=== PATIENT | male | born 1960 | race Caucasian/White ===

== ENCOUNTER 2022-01-16 01:02 | Day surgery (SDC) | payer OTHER, SELFPAY ==
[2022-01-07 14:16] VITALS: BMI 31.6
[2022-01-16 12:39] VITALS: BP 116/65; PULSE 57; RESP 16; TEMP 36.6; O2SAT 99; BMI 28.2
[2022-01-16] MEDS: LACTATED RINGERS 1,000 ML 150 ML IV CONT (12:53)
--- NOTE | 2022-01-16 13:06 | WPDANESEPPF ---
Anes - Initial Pre Proc Eval Procedure: Operation Date: 01/16/22 13:45 Proposed Procedures p Esophagogastroduodenoscopy - Dipesh Randhawa MD Date/Time: 01/16/22 13:06 Surgeon: Dipesh Randhawa MD Pre Op Diagnosis: dysphagia Patient Data Age: 61 Gender: M Height: 1.93 m Weight: 105.1 kg Last Vital Signs Temp 36.6 C 01/16/22 12:39 Pulse 57 L 01/16/22 12:39 Resp 16 01/16/22 12:39 BP 116/65 01/16/22 12:39 Pulse Ox 99 01/16/22 12:39 Allergies Allergy/AdvReac Type Severity Reaction Status Date / Time No Known Allergies Allergy Verified 01/16/22 12:38 Home Medications Medication Instructions Recorded Confirmed Type levothyroxine [Synthroid] 88 mcg PO DAILY 01/07/22 01/07/22 History Patient hx anesthesia problems: none Family hx anesthesia problems: none Results Review: All pre-operative results and documents have been reviewed as part of the pre-operative evaluation. [facility] Past Medical History Medical History (Updated 01/16/22 @ 13:08 by Boogie Baca MD) Hemorrhoids Hypothyroidism Overweight Social History Social History Smoking status: Never smoker Alcohol intake: current Drinks per week: 1 Substance use type: does not use Living arrangements: with family Spiritual care concerns: No Anes - Eval Final PreProcedure Day of Procedure 01/16/22 13:06 Patient weight: overweight Heart: regular rate and rhythm Lungs: clear to auscultation Airway: Mallampati scale class II Neurological: alert and oriented Last oral intake: >/= 8 hours ASA classification: II Emergent: no Anesthetic plan: proceed Anesthesia type and monitoring: general GIVS and standard monitoring Results Review: All pre-operative results and documents have been reviewed as part of the pre-operative evaluation. Informed Consent: The patient's anesthetic plan and its attendant risks and benefits were discussed with the patient/family/POA. Questions were solicited and answers provided to the satisfaction of the patient/family/POA.
--- NOTE | 2022-01-16 13:32 | PM.HPGS ---
History of Present Illness History of Present Illness Consent: Risks, benefits, and alternatives have been discussed and questions answered. Patient agrees to proceed with procedure. Chief complaint: dysphagia Narrative: Hung Ashford is a 61 year old male With dysphagia for the past 6 months. he also has had a great deal of heartburn for the past year. He has been using [id number] medications such as Pepcid for that. He Occasional has a sensation of food is getting stuck when he swallows. Review of Systems Review of Systems: All systems reviewed & are unremarkable except as noted in HPI and below PMFSH Past Medical History Medical History Hemorrhoids Hypothyroidism Overweight Social History Social History Smoking status: Never smoker Alcohol intake: current Drinks per week: 1 Substance use type: does not use Living arrangements: with family Spiritual care concerns: No Meds Home Medications and Allergies Home Medications Medication Instructions Recorded Confirmed Type levothyroxine [Synthroid] 88 mcg PO DAILY 01/07/22 01/07/22 History Allergies Allergy/AdvReac Type Severity Reaction Status Date / Time No Known Allergies Allergy Verified 01/16/22 12:38 Vital Signs Vital Signs - 24 hr 01/16/22 12:39 Temperature 36.6 C Pulse Rate 57 L Respiratory Rate 16 Blood Pressure 116/65 Pulse Oximetry 99 Exam Const: General: alert Orientation/consciousness: patient oriented x3 Resp: Auscultation: clear to auscultation bilaterally Cardio: Rhythm: regular rhythm GI: GI Palp: Yes Soft to palpation and No Tenderness to palpation present (GI) Neuro: General: patient oriented x3 Assessment and Plan Assessment and plan (1) Dysphagia: Code(s): R13.10 - Dysphagia, unspecified Status: Acute Assessment and Plan: EGD with possible biopsy or dilatation or cautery.
[2022-01-16 14:04] VITALS: BP 106/63; PULSE 55; RESP 18; O2SAT 95
[2022-01-16 14:14] VITALS: BP 107/61; PULSE 52; RESP 18; O2SAT 98
[2022-01-16 14:24] VITALS: BP 109/66; PULSE 54; RESP 16; O2SAT 96
== END 2022-01-16 14:44 | disposition home or self-care (01) ==
PROVIDERS: PCP Physician Assistant; Visit Provider Internal Medicine Gastroenterology
PROC: 0DJ08ZZ Inspection of Upper Intestinal Tract, Via Natural or Artificial Opening Endoscopic (ICD-10-PCS; CPT 43235; principal; 2022-01-16 13:45)
DX: K22.2 Esophageal obstruction (principal); K21.00 Gastro-esophageal reflux disease with esophagitis, without bleeding; K44.9 Diaphragmatic hernia without obstruction or gangrene; E03.9 Hypothyroidism, unspecified
CPT/HCPCS: 43249; 43239; 87081; 88305; C1726; J2704; J7120

== ENCOUNTER 2022-03-23 02:45 | Day surgery (SDC) | payer OTHER, SELFPAY ==
[2022-03-12 11:34] VITALS: BMI 28.6
--- NOTE | 2022-03-20 14:01 | PM.HPGS ---
History of Present Illness History of Present Illness Consent: Risks, benefits, and alternatives have been discussed and questions answered. Patient agrees to proceed with procedure. Chief complaint: Esophagitis Narrative: Hung Ashford is a 61 year old male Who was found have severe, grade 4 esophagitis 2 months ago which time an esophageal stricture also was seen and was dilated. He returns now for follow-up evaluation to ensure healing and repeat dilatation if necessary Review of Systems Review of Systems: All systems reviewed & are unremarkable except as noted in HPI and below PMFSH Past Medical History Medical History Hemorrhoids Hypothyroidism Overweight Social History Social History Smoking status: Never smoker Alcohol intake: current Drinks per week: 1 Substance use type: does not use Living arrangements: with family Spiritual care concerns: No Meds Home Medications and Allergies Home Medications Medication Instructions Recorded Confirmed Type levothyroxine 100 mcg tablet 100 mcg PO DAILY 03/12/22 03/23/22 History (Synthroid) Allergies Allergy/AdvReac Type Severity Reaction Status Date / Time No Known Allergies Allergy Verified 03/23/22 11:14 Exam Const: General: alert Orientation/consciousness: patient oriented x3 Resp: Auscultation: clear to auscultation bilaterally Cardio: Rhythm: regular rhythm GI: GI Palp: Yes Soft to palpation and No Tenderness to palpation present (GI) Neuro: General: patient oriented x3 Assessment and Plan Assessment and plan (1) Erosive esophagitis: Code(s): K22.10 - Ulcer of esophagus without bleeding Status: Acute Assessment and Plan: EGD with possible biopsy or dilatation or cautery.
[2022-03-23 11:15] VITALS: BP 121/67; PULSE 55; RESP 18; TEMP 36.8; O2SAT 99
[2022-03-23] MEDS: LACTATED RINGERS 1,000 ML 150 ML IV CONT (11:19)
--- NOTE | 2022-03-23 12:37 | P.PNAN_ITS ---
Anes - Initial Pre Proc Eval Procedure: Operation Date: 03/23/22 12:30 Proposed Procedures p Esophagogastroduodenoscopy - Dipesh Randhawa MD Date/Time: 03/23/22 12:37 Surgeon: Dipesh Randhawa MD Pre Op Diagnosis: Esophagitis Patient Data Age: 61 Gender: M Height: 1.91 m Weight: 105.9 kg Last Vital Signs Temp 98.2 F 03/23/22 11:15 Pulse 55 L 03/23/22 11:15 Resp 18 03/23/22 11:15 BP 121/67 03/23/22 11:15 Pulse Ox 99 03/23/22 11:15 O2 Del Method Room Air 03/23/22 11:15 Allergies Allergy/AdvReac Type Severity Reaction Status Date / Time No Known Allergies Allergy Verified 03/23/22 11:14 Home Medications Medication Instructions Recorded Confirmed Type levothyroxine 100 mcg tablet 100 mcg PO DAILY 03/12/22 03/23/22 History (Synthroid) Patient hx anesthesia problems: none Family hx anesthesia problems: none Results Review: All pre-operative results and documents have been reviewed as part of the pre- operative evaluation. [facility] Past Medical History Medical History Hemorrhoids Hypothyroidism Overweight Social History Social History Smoking status: Never smoker Alcohol intake: current Drinks per week: 1 Substance use type: does not use Living arrangements: with family Spiritual care concerns: No Anes - Eval Final PreProcedure Day of Procedure 03/23/22 12:37 Patient weight: normal Heart: regular rate and rhythm Lungs: clear to auscultation Airway: Mallampati scale class II Neurological: alert and oriented Last oral intake: >/= 8 hours ASA classification: II Emergent: no Anesthetic plan: proceed Anesthesia type and monitoring: general GIVS and standard monitoring Results Review: All pre-operative results and documents have been reviewed as part of the pre- operative evaluation. Informed Consent: The patient's anesthetic plan and its attendant risks and benefits were discussed with the patient/family/POA. Questions were solicited and answers provided to the satisfaction of the patient/family/POA.
[2022-03-23 12:57] VITALS: BP 109/66; PULSE 49; RESP 17; O2SAT 97
[2022-03-23 13:07] VITALS: BP 121/76; PULSE 53; RESP 16; O2SAT 98
[2022-03-23 13:17] VITALS: BP 121/75; PULSE 54; RESP 16; O2SAT 99
== END 2022-03-23 13:28 | disposition home or self-care (01) ==
PROVIDERS: PCP Physician Assistant; Visit Provider Internal Medicine Gastroenterology
PROC: 0DJ08ZZ Inspection of Upper Intestinal Tract, Via Natural or Artificial Opening Endoscopic (ICD-10-PCS; CPT 43235; principal; 2022-03-23 12:30)
DX: K21.00 Gastro-esophageal reflux disease with esophagitis, without bleeding (principal); K22.2 Esophageal obstruction; E03.9 Hypothyroidism, unspecified
CPT/HCPCS: 43239; 88305; J2704; J7120

== ENCOUNTER 2024-06-30 00:13 | Day surgery (SDC) | payer OTHER, SELFPAY ==
[2024-06-14 12:42] VITALS: BMI 28.7
[2024-06-30 06:56] VITALS: BP 132/89; PULSE 53; RESP 20; TEMP 35.7; O2SAT 99; BMI 28.1
[2024-06-30] MEDS: LACTATED RINGERS 1,000 ML 150 ML IV CONT (07:06)
--- NOTE | 2024-06-30 07:24 | P.PNAN_ITS ---
Anes - Initial Pre Proc Eval Procedure: Operation Date: 06/30/24 08:00 Proposed Procedures p Esophagogastroduodenoscopy & Colonoscopy - Gabino Mckinnon MD Date/Time: 06/30/24 07:24 Surgeon: Gabino Mckinnon MD Pre Op Diagnosis: hx. of esophageal ulcer & stricuture,hx. of polyps Patient Data Age: 64 Gender: M Height: 1.93 m Weight: 104.9 kg Last Vital Signs Temp 96.2 F L 06/30/24 06:56 Pulse 53 L 06/30/24 06:56 Resp 20 06/30/24 06:56 BP 132/89 06/30/24 06:56 Pulse Ox 99 06/30/24 06:56 O2 Del Method Room Air 06/30/24 06:56 Allergies Allergy/AdvReac Type Severity Reaction Status Date / Time No Known Allergies Allergy Verified 06/30/24 06:54 Home Medications Medication Instructions Recorded Confirmed Type levothyroxine 100 mcg tablet 100 mcg PO DAILY 03/12/22 06/30/24 History (Synthroid) Patient hx anesthesia problems: none Family hx anesthesia problems: none Results Review: All pre-operative results and documents have been reviewed as part of the pre- operative evaluation. [facility] Past Medical History Medical History Hemorrhoids Hypothyroidism Overweight Social History Social History Smoking status: Never smoker Alcohol intake: current Drinks per week: 2 Alcohol use details: OCCASIONAL WINE Substance use: never Substance use type: does not use Living arrangements: with family Spiritual care concerns: No Anes - Eval Final PreProcedure Day of Procedure 06/30/24 07:24 Patient weight: overweight Heart: regular rate and rhythm Lungs: clear to auscultation Airway: Mallampati scale class II Neurological: alert and oriented Last oral intake: >/= 8 hours ASA classification: II Emergent: no Anesthetic plan: proceed Anesthesia type and monitoring: general GIVS and standard monitoring Results Review: All pre-operative results and documents have been reviewed as part of the pre- operative evaluation. Hypothyroidism. Hx of PUD, now for reeval. Informed Consent: The patient's anesthetic plan and its attendant risks and benefits were discussed with the patient/family/POA. Questions were solicited and answers provided to the satisfaction of the patient/family/POA.
--- NOTE | 2024-06-30 07:36 | PM.HPGS ---
History of Present Illness History of Present Illness Consent: Risks, benefits, and alternatives have been discussed and questions answered. Patient agrees to proceed with procedure. Chief complaint: hx. of esophageal ulcer & stricuture,hx. of polyps Narrative: Hung Ashford is a 64 year old male with symptomatic gerd despite pepcid, egd 2021 with erosive esophagitis. Also colon polyp 3 years ago. Review of Systems Review of Systems: All systems reviewed & are unremarkable except as noted in HPI and below PMFSH Past Medical History Medical History (Updated 06/30/24 @ 07:39 by Gabino Mckinnon MD) Colon polyp Hemorrhoids Hypothyroidism Overweight Social History Social History Smoking status: Never smoker Alcohol intake: current Drinks per week: 2 Alcohol use details: OCCASIONAL WINE Substance use: never Substance use type: does not use Living arrangements: with family Spiritual care concerns: No Meds Home Medications and Allergies Home Medications Medication Instructions Recorded Confirmed Type levothyroxine 100 mcg tablet 100 mcg PO DAILY 03/12/22 06/30/24 History (Synthroid) Allergies Allergy/AdvReac Type Severity Reaction Status Date / Time No Known Allergies Allergy Verified 06/30/24 06:54 Vital Signs Vital Signs - 24 hr 06/30/24 06:56 Temperature 96.2 F L Pulse Rate 53 L Respiratory Rate 20 Blood Pressure 132/89 Pulse Oximetry 99 Oxygen Delivery Room Air Exam Const: General: comfortable and no acute distress HENMT: Face/Nose/Sinus: Normal nares present Eyes: General: appearance normal, both eyes and all related structures Neck: Neck: no JVD Resp: Auscultation: clear to auscultation bilaterally Cardio: Rate: regular rate Rhythm: regular rhythm GI: Inspection: non-distended GI Palp: Yes Soft to palpation Skin: General skin exam: normal color Neuro: General: gait normal Speech: normal speech Extrem: General: normal to inspection Psych: Mental Status: mental status grossly normal Assessment and Plan Assessment and plan (1) Erosive esophagitis: Code(s): K22.10 - Ulcer of esophagus without bleeding Status: Acute Assessment and Plan: egd with bx probably will need ppi (2) Colon polyp: Code(s): K63.5 - Polyp of colon Status: Acute Assessment and Plan: colonoscopy
--- NOTE | 2024-06-30 07:59 | SUR.OPER ---
EGD START 742, END 46 COLONOSCOPY START 075, END 075
[2024-06-30 08:00] VITALS: BP 111/66; PULSE 49; RESP 19; O2SAT 95
[2024-06-30 08:10] VITALS: BP 102/60; PULSE 46; RESP 17; O2SAT 95
[2024-06-30 08:20] VITALS: BP 109/61; PULSE 47; RESP 17; O2SAT 95
== END 2024-06-30 08:40 | disposition home or self-care (01) ==
PROVIDERS: PCP Family Medicine; Referring Provider Family Medicine; Visit Provider Internal Medicine Gastroenterology
PROC: 0DJ08ZZ Inspection of Upper Intestinal Tract, Via Natural or Artificial Opening Endoscopic (ICD-10-PCS; CPT 43235; principal; 2024-06-30 08:00)
DX: Z12.11 Encounter for screening for malignant neoplasm of colon (principal); K64.8 Other hemorrhoids; K57.30 Diverticulosis of large intestine without perforation or abscess without bleeding; K21.00 Gastro-esophageal reflux disease with esophagitis, without bleeding; K29.50 Unspecified chronic gastritis without bleeding; K22.2 Esophageal obstruction; K44.9 Diaphragmatic hernia without obstruction or gangrene; E03.9 Hypothyroidism, unspecified; Z86.0100 Personal history of colon polyps, unspecified; Z87.19 Personal history of other diseases of the digestive system
CPT/HCPCS: 43239; 45378; 88305; J2704; J7120